=== PATIENT | female | born 1945 | race African-American/Black ===

== ENCOUNTER 2021-02-27 10:38 | Observation (INO) ==
[2021-02-27 16:20] LABS: INR 1.1; PT Patient Result 11.9 SECS (10.5-12.0)
[2021-02-27 16:28] LABS: Albumin 3.7 G/DL (3.4-5.0); Bilirubin,Total 0.4 MG/DL (0.20-1.00); Calcium 9.5 MG/DL (8.5-10.1); Osmolality,Calculated 273.7 MOS/KG (273-304); Potassium 4.4 MMOL/L (3.5-5.1); Total Protein 7.8 G/DL (6.4-8.2)
[2021-02-27 17:48] LABS: Basophils % 0.4 % (0.0-0.8); Eosinophils # 0.2 10*3/uL (0.0-0.87); Eosinophils % 3.2 % (0.00-10.9); Hematocrit 41.9 VOL% (35.7-47.0); Hemoglobin 13.5 GM/DL (12.0-16.0); Immature Granulocytes % 0.4 %; Immature Granulocytes Absolute 0.02 #; Lymphocytes # 1.9 10*3/uL (1.4-4.0); Lymphocytes % 37.5 % (21.3-54.2); Mean Corpuscular HGB Conc 32.2 GM/DL (32-36); Mean Corpuscular Volume 97.2 FL (87-102); Mean Platelet Volume 11.3 FL (9.6-12.0); Monocytes % 8.7 % (1.7-12.7); Neutrophils % 49.8 % (38.7-73.9); Platelet Count 134 T/CUMM (130-400); Red Blood Count 4.31 MC/CUMM (3.8-5.5); Red Cell Distribution Width 13.3 % (9.3-17.3); White Blood Count 5.1 T/CUMM (4-12)
[2021-02-27] MEDS ORDERED: NICOTINE 21 MG/24 HR PATCH TRANSDERM PRN (18:02)
[2021-02-27] MEDS ORDERED: ONDANSETRON 4 MG/2 ML VIAL IV PRN (18:02)
[2021-02-27] MEDS ORDERED: GLUCAGON 1 MG VIAL IM PRN ×2 (18:02)
[2021-02-27] MEDS ORDERED: diphenhydrAMINE CAP 25 MG CAPSULE PO PRN (18:02)
[2021-02-27] MEDS ORDERED: DEXTROSE 50% 25 GM/50 ML VIAL IV PRN ×2 (18:02)
[2021-02-27] MEDS ORDERED: ZALEPLON 5 MG CAPSULE PO PRN (18:02)
[2021-02-27] MEDS ORDERED: hydrALAZINE 20 MG/1 ML VIAL IV PRN (18:02)
[2021-02-27] MEDS ORDERED: guaiFENesin/DM ER 600-30 MG TABLET PO PRN (18:02)
[2021-02-27] MEDS ORDERED: ACETAMINOPHEN 325 MG TABLET PO PRN (18:02)
[2021-02-27 19:09] LABS: Bilirubin,Urine Negative (Negative); Blood, Urine Negative (Negative); Glucose,Urine (UA) Negative (Negative); Ketones,Urine Negative (Negative); Mucus,Urine Many /LPF (Occasional); Nitrite,Urine Negative (Negative); Protein,Urine Negative; RBC,Urine <1 /HPF (0-4); Squamous Epithelial Cell,Urine Occasional /HPF (0-10); Urine Appearance CLEAR (Clear); Urine Color Amber (Yellow); Urine Specific Gravity 1.027 (1.001-1.035)
[2021-02-27] MEDS: ENOXAPARIN 40 MG/0.4 ML SYRINGE SUBCUT SCH (22:06)
[2021-02-27] MEDS: INSULIN LISPRO 100 UNIT/ML SUBCUT SCH (22:06)
[2021-02-28] MEDS: INSULIN LISPRO 100 UNIT/ML SUBCUT SCH ×4 (08:40→22:10)
[2021-02-28] MEDS: ATORVASTATIN 40 MG TABLET PO SCH (09:50)
[2021-02-28] MEDS: hydroCHLOROthiazide 25 MG TABLET PO SCH (09:50)
[2021-02-28] MEDS: ASPIRIN EC 325 MG TABLET PO SCH (09:50)
[2021-02-28] MEDS: LOSARTAN 50 MG TABLET PO SCH (09:51)
[2021-02-28] MEDS: PANTOPRAZOLE 40 MG TABLET PO SCH (09:51)
[2021-02-28] MEDS: amLODIPine 10 MG TABLET PO SCH (09:51)
[2021-02-28] MEDS ORDERED: TUBERCULIN SKIN TEST 0.1 ML SYRINGE INTRADERM ONE (11:39)
[2021-02-28] MEDS ORDERED: LACTULOSE 20 GM/30 ML UDCUP PO PRN (13:51)
[2021-02-28] MEDS: metFORMIN 500 MG TABLET PO SCH ×2 (16:40→17:05)
[2021-02-28] MEDS: ENOXAPARIN 40 MG/0.4 ML SYRINGE SUBCUT SCH (18:26)
[2021-03-01 05:08] LABS: Basophils % 0.8 % (0.0-0.8); Eosinophils # 0.2 10*3/uL (0.0-0.87); Eosinophils % 3.3 % (0.00-10.9); Hematocrit 40.7 VOL% (35.7-47.0); Hemoglobin 13.2 GM/DL (12.0-16.0); Immature Granulocytes % 0.4 %; Immature Granulocytes Absolute 0.02 #; Mean Corpuscular HGB Conc 32.4 GM/DL (32-36); Mean Corpuscular Volume 96.9 FL (87-102); Monocytes % 12.2 % (1.7-12.7); Neutrophils % 44.3 % (38.7-73.9); Platelet Count 232 T/CUMM (130-400); Red Cell Distribution Width 13.2 % (9.3-17.3); White Blood Count 5.1 T/CUMM (4-12)
[2021-03-01 05:32] LABS: Calcium 8.9 MG/DL (8.5-10.1); Osmolality,Calculated 273.7 MOS/KG (273-304); Potassium 3.6 MMOL/L (3.5-5.1)
[2021-03-01] MEDS: metFORMIN 500 MG TABLET PO SCH ×2 (09:57→17:59)
[2021-03-01] MEDS: LOSARTAN 50 MG TABLET PO SCH (09:58)
[2021-03-01] MEDS: hydroCHLOROthiazide 25 MG TABLET PO SCH (09:58)
[2021-03-01] MEDS: amLODIPine 10 MG TABLET PO SCH (09:58)
[2021-03-01] MEDS: ASPIRIN EC 325 MG TABLET PO SCH (09:58)
[2021-03-01] MEDS: PANTOPRAZOLE 40 MG TABLET PO SCH (09:58)
[2021-03-01] MEDS: ATORVASTATIN 40 MG TABLET PO SCH (09:58)
[2021-03-01] MEDS: INSULIN LISPRO 100 UNIT/ML SUBCUT SCH ×4 (10:14→21:28)
[2021-03-01] MEDS: ENOXAPARIN 40 MG/0.4 ML SYRINGE SUBCUT SCH (18:59)
[2021-03-02 06:00] LABS: Basophils % 0.6 % (0.0-0.8); Eosinophils # 0.1 10*3/uL (0.0-0.87); Eosinophils % 2.7 % (0.00-10.9); Hematocrit 42.9 VOL% (35.7-47.0); Hemoglobin 13.8 GM/DL (12.0-16.0); Immature Granulocytes % 0.6 %; Immature Granulocytes Absolute 0.03 #; Lymphocytes # 2.2 10*3/uL (1.4-4.0); Lymphocytes % 44.3 % (21.3-54.2); Mean Corpuscular HGB Conc 32.2 GM/DL (32-36); Mean Corpuscular Volume 98.6 FL (87-102); Monocytes % 12.4 % (1.7-12.7); Neutrophils % 39.4 % (38.7-73.9); Platelet Count 241 T/CUMM (130-400); Red Blood Count 4.35 MC/CUMM (3.8-5.5); White Blood Count 4.9 T/CUMM (4-12)
[2021-03-02 06:51] LABS: Calcium 8.5 MG/DL (8.5-10.1); Osmolality,Calculated 276.5 MOS/KG (273-304); Potassium 4.1 MMOL/L (3.5-5.1)
[2021-03-02] MEDS: INSULIN LISPRO 100 UNIT/ML SUBCUT SCH ×4 (09:20→23:27)
[2021-03-02] MEDS: metFORMIN 500 MG TABLET PO SCH ×2 (09:21→16:53)
[2021-03-02] MEDS: ATORVASTATIN 40 MG TABLET PO SCH (09:21)
[2021-03-02] MEDS: amLODIPine 10 MG TABLET PO SCH (09:21)
[2021-03-02] MEDS: PANTOPRAZOLE 40 MG TABLET PO SCH (09:21)
[2021-03-02] MEDS: LOSARTAN 50 MG TABLET PO SCH (09:21)
[2021-03-02] MEDS: ASPIRIN EC 325 MG TABLET PO SCH (09:21)
[2021-03-02] MEDS: hydroCHLOROthiazide 25 MG TABLET PO SCH (09:21)
[2021-03-02] MEDS: ENOXAPARIN 40 MG/0.4 ML SYRINGE SUBCUT SCH (18:12)
[2021-03-03] MEDS: INSULIN LISPRO 100 UNIT/ML SUBCUT SCH ×2 (08:22→11:30)
[2021-03-03] MEDS: LOSARTAN 50 MG TABLET PO SCH (09:18)
[2021-03-03] MEDS: hydroCHLOROthiazide 25 MG TABLET PO SCH (09:18)
[2021-03-03] MEDS: PANTOPRAZOLE 40 MG TABLET PO SCH (09:19)
[2021-03-03] MEDS: amLODIPine 10 MG TABLET PO SCH (09:19)
[2021-03-03] MEDS: metFORMIN 500 MG TABLET PO SCH (09:19)
[2021-03-03] MEDS: ASPIRIN EC 325 MG TABLET PO SCH (09:19)
[2021-03-03] MEDS: ATORVASTATIN 40 MG TABLET PO SCH (09:19)
[2021-03-03 12:27] VITALS: BP 120/59
== END 2021-03-03 14:22 ==
LOC: N.ED 10:38 → N.EDINP 10:38 → N.4E 20:32
PROVIDERS: ADMIT Internal Medicine; ATTEND Internal Medicine